=== PATIENT | female | born 1970 | race African-American/Black ===

== ENCOUNTER 2017-03-11 14:30 | Emergency (ER) | payer OTHER ==
[~2017-03-11] VITALS: Ht 170.2 cm; Wt 88.5 kg
[~2017-03-11 14:30] MED LIST: ZOFRAN ODT4 M1 SL
[2017-03-11 14:35] VITALS: BP 160/94
--- NOTE | 2017-03-11 14:48 | ED INFLUENZA/URI COMPLAINT ---
History of Present Illness General Chief Complaint: Upper Respiratory Sx/Fever Stated Complaint: "SINUS INFECTION" Source: patient, friend Exam Limitations: no limitations Vital Signs & Intake/Output Vital Signs & Intake/Output Vital Signs Date Time Temp Pulse Resp B/P B/P Pulse O2 O2 Flow FiO2 Mean Ox Delivery Rate 03/11 1524 Room Air 03/11 1435 97.2 103 18 160/94 99 Room Air Allergies Coded Allergies: Penicillins (Severe, TONGUE LIP SWELLING 03/11/17) shellfish derived (SHRIMP AND LOBSTER, LIPS AND TONGUE 03/11/17) Reconcile Medications Benzonatate 200 MG CAPSULE 1 CAP PO TID PRN cough Doxycycline Hyclate (Vibramycin) 100 MG CAPSULE 1 CAP PO BID sinusitis Methylprednisolone. (Medrol) 4 MG TAB.DS.PK 1 DP PO AD INFLAMMATION Ondansetron (Zofran Odt) 4 MG TAB.RAPDIS 1 TAB SL TID PRN NAUSEA Triage Note: TRIAGE: PATIENT REPORTS YESTERDAY AND THIS AM HAVING PRESSURE TO ENTIRE FACE W/ NASAL CONGESTION, REPORTING "I THINK IT'S A SINUS INFECTION, I GET THEM THIS TIME OF YEAR." DENIES SOB, NO ACUTE RESP DISTRESS NOTED. Triage Nurses Notes Reviewed? yes : No Patient currently breastfeeds: No HPI: Patient is a 46-year-old female presents complaining of sinus congestion, sore throat, epigastric pain. Symptoms onset yesterday. Patient reports cough with green sputum production. Facial pressure, congestion, sore throat or severe. No exacerbating or alleviating factors. Patient has not taken any medication for her symptoms prior to arrival. Patient denies fevers, chills, dyspnea. Last menstrual period was 1 week ago (JIMMY SAUCEDA) Past History Travel History Traveled to [place] past 21 day No Medical History Any Pertinent Medical History? see below for history Neurological: migraine EENT: NONE Cardiovascular: NONE Respiratory: NONE Gastrointestinal: NONE Hepatic: NONE Renal: NONE Musculoskeletal: NONE Psychiatric: NONE Endocrine: NONE Blood Disorders: NONE Cancer(s): NONE FRAME STRIPPER/Reproductive: NONE Surgical History Surgical History: non-contributory Psychosocial History What is your primary language Hebrew Tobacco Use: Never used Family History Hx Contributory? No (JIMMY SAUCEDA) Review of Systems Review of Systems Constitutional: Denies: chills, fever. EENTM: Reports: nasal congestion, throat pain. Respiratory: Reports: cough (mild), sputum production. Denies: short of breath. Cardiovascular: Denies: chest pain. GI: Reports: abdominal pain. Denies: diarrhea, nausea, vomiting. Genitourinary: Reports: no symptoms. Musculoskeletal: Reports: no symptoms. Skin: Reports: no symptoms. Neurological/Psychological: Reports: headache. Hematologic/Endocrine: Reports: no symptoms. Immunologic/Allergic: Reports: no symptoms. (JIMMY SAUCEDA) Physical Exam Physical Exam General Appearance: well developed/nourished, alert, awake Head: atraumatic, normal appearance, bilateral maxillary sinus tenderness Eyes: Bilateral: normal appearance, PERRL, EOMI. Ears, Nose, Throat: swollen left nasal turbinates. Tympanic membranes normal bilaterally. Normal EAC bilaterally. No pharyngeal erythema or tonsillar exudates Neck: normal inspection, supple, full range of motion Respiratory: normal breath sounds, chest non-tender, no respiratory distress, lungs clear Cardiovascular: regular rate/rhythm Gastrointestinal: normal bowel sounds, soft, non-tender Back: normal inspection, normal range of motion Extremities: normal range of motion Neurologic/Psych: no motor/sensory deficits, awake, alert, oriented x 3, normal gait, normal mood/affect Skin: normal color, warm/dry Lymphatic: mild left anterior cervical lymphadenopathy Core Measures Severe Sepsis Present: No Septic Shock Present: No (JIMMY SAUCEDA) Progress Differential Diagnosis: influenza, otitis, pneumonia, pharyngitis, sinusitis, intra-abdominal infection Plan of Care: Patient afebrile, nontoxic-appearing, no abdominal tenderness on exam. Discussed with patient that sinusitis is likely viral given time course. We'll provide prescription for antibiotics if symptoms are not improving. Patient struck to follow-up with her primary care doctor if no improvement Initial ED EKG: none (JIMMY SAUCEDA) Departure Departure Time of Disposition: 1504 Disposition: HOME OR SELF CARE Condition: Stable Clinical Impression Primary Impression: Sinusitis Qualifiers: Sinusitis location: unspecified location Chronicity: acute Recurrence: non-recurrent Qualified Code: J01.90 - Acute sinusitis, unspecified Referrals: TRINITY PEREZ APRN (PCP/Family) Additional Instructions: Drink plenty of fluids and rest. Follow-up with your primary care provider if no improvement within one week. Return to the emergency department if difficulty breathing, unable to stay hydrated, or worsening symptoms. Departure Forms: Customer Survey General Discharge Information Prescriptions: Current Visit Scripts Doxycycline Hyclate (Vibramycin) 1 CAP PO BID #14 CAP Methylprednisolone. (Medrol) 1 DP PO AD #1 DP Benzonatate 1 CAP PO TID PRN cough #30 CAP (KATHERIN LIU,JIMMY) PA/COMPUTER NUMERICAL CONTROL GRINDER Co-Sign Statement Statement: ED Attending supervision documentation- [] I saw and evaluated the patient. I have also reviewed all the pertinent lab results and diagnostic results. I agree with the findings and the plan of care as documented in the PA's/COMPUTER NUMERICAL CONTROL GRINDER's documentation. [X] I have reviewed the ED Record and agree with the PA's/COMPUTER NUMERICAL CONTROL GRINDER's documentation. [] Additions or exceptions (if any) to the PAs/COMPUTER NUMERICAL CONTROL GRINDER's note and plan are summarized below: [] (MARGO STEPHENSON,BRI Hansen)
[2017-03-11] MEDS ORDERED: MEDROL4 M2 PO (15:05)
[2017-03-11] MEDS ORDERED: BENZONATATE200 M1 PO (15:05)
[2017-03-11] MEDS ORDERED: VIBRAMYCIN100 MG PO (15:05)
== END 2017-03-11 15:23 ==
LOC: ERH 14:30
DX: J32.9 Chronic sinusitis, unspecified (principal)